=== PATIENT | female | born 1985 | race Caucasian/White ===

== ENCOUNTER 2017-10-05 05:16 | Inpatient (IN) ==
--- OUTSIDE RECORDS SUMMARY | 2017-10-05 05:23 | External Medical Summary | Continuity of Care Document ---
:1985 Author Organization [facility] [employer] [facility] Address [address] [place], [place] [address] Phone Care Team Providers Name Role Phone Blanquita Simmons MD Unavailable Unavailable Allergies, Adverse Reactions, Alerts Substance Reaction Severity Status amoxicillin hives Unknown Active Medications Medication Instructions Dosage Effective Dates Status Comments (start - stop) fluconazole 150 take 1 tablet by 150 MG - Active mg tablet oral route once Fioricet 50 take 1 - 2 capsule Not Available - Active mg-300 mg-40 mg by oral route capsule every 4 hours as needed not to exceed 6 capsules per 24hrs Plus take 1 tablet by Not Available - Active (calcium oral route every carbonate) 27 mg day iron-1 mg tablet Diprolene 0.05 % apply by topical Not Available - Active for psoriosis topical ointment route every day to the affected area(s) ; do not exceed 45 grams per week. Prozac 20 mg take 1 capsule by 20 MG - Active capsule oral route every day in the morning Problems Condition Effective Dates (start - stop) Clinical Status Supervision of other high risk - pregnancies, first trimester Encntr screen for infections w sexl - mode of transmiss Encounter for screening for oth - infec/parastc diseases Encounter For Other Specified - Screening Less than 8 weeks gestation of - Supervision of other high risk - pregnancies, first trimester Previous Low Transverse - 10 weeks gestation of - Oth related conditions, - second trimester 23 weeks gestation of - Supervision of other high risk - pregnancies, third trimester 28 weeks gestation of - Polycystic ovarian syndrome Morbid (severe) obesity due to excess calories Female infertility associated with anovulation 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) w abnormal findings Pap Smear Screening, Cervix Encounter for screening for diabetes - mellitus Encounter for screening for lipoid - disorders Body mass index (BMI) 40.0-44.9, adult Vaginal Discharge or Lesion - Previous Low Transverse - 28 weeks gestation of - Female infertility associated with - anovulation Encounter for screening for diabetes - mellitus Encounter for screening for lipoid - disorders Supervision of other high risk - pregnancies, second trimester Previous Low Transverse - Matern care for oth or susp poor fetl - grth, 2nd tri, unsp 19 weeks gestation of - Supervision of other high risk - pregnancies, second trimester Previous Low Transverse - 26 weeks gestation of - Supervision of other high risk - pregnancies, second trimester 25 weeks gestation of - Supervision of other high risk - pregnancies, second trimester Right upper quadrant pain - 19 weeks gestation of - Supervision of other high risk - pregnancies, third trimester 30 weeks gestation of - Oth related conditions, - third trimester Previous Low Transverse - 32 weeks gestation of - Matern care for oth or susp poor fetl - grth, 2nd tri, unsp 14 weeks gestation of - Depression Active Irregular Bleeding Active Procedures Procedure Date Unknown Results Test Name Date and Time Measure Units Reference Range Abnormal Flag Comments Unknown Advance Directives Directive Yes / No Effective Date File Name Unknown Encounters Encounter Practice Location Reason(s) Diagnoses Date Provider Care Team Description For Visit Members Malachi Fu Oth Aug- Jurado Referring In Womens related 2-201 Robyn. Provider: Health PA, conditions, third 8 700 Blanquita PO Box trimesterPrevious Medical [place] 1522, Low Transverse Center [facility], C-Calwrhv19 weeks [place] [address] [place], gestation of [address], [address], , [place], [place] [facility], , [place], tel: [phone] , [place]. tel: tel: [phone] Malachi Fu Aug-0 Jurado In Womens 3-201 Robyn. Health PA, 8 700 PO Box Medical 1522, [facility], [place], 120, , [place], [place], tel: [phone] , [place]. tel: [phone] Malachi Fu Supervision of Jul- Jurado Referring In Womens other high risk 8-201 Robyn. Provider: Health PA, pregnancies, 8 700 Blanquita PO Box third [id number] Medical [place] 1522, weeks gestation [facility], of [place] [address] [place], 120, [address], [id number], [place], , [place], tel: [phone]. , [place]. tel: tel: [phone] Malachi Fu Supervision of Jul- Jurado Referring In Womens other high risk 9-201 Robyn. Provider: Health PA, pregnancies, 8 700 Blanquita PO Box third [id number] Medical [place] 1522, weeks gestation [facility], [facility] [place] [address] [place], [address], [address], [id number], [place], , [place], tel: [phone]. , [place]. tel: tel: [phone] Malachi Fu Vaginal Discharge Anthony- Jurado Referring In Womens or LesionPrevious 4-201 Robyn. Provider: Health ANDRE, Low Transverse 8 700 Blanquita PO Box C-[id number] weeks [facility] 1522, gestation of [facility], [place] [address] [place], [address], [address], [id number], [facility] [place], , [place], tel: [phone]. , [place]. tel: tel: [phone] Malachi Fu Supervision of June-3 Jurado Referring In Womens other high risk 1-201 Robyn. Provider: Health PA, pregnancies, 8 700 Blanquita PO Box [facility] 1522, trimesterPrevious [facility], Low Transverse [place] [address]. [place], C-Gzefqca19 weeks 120, [address], , gestation of [facility] [place], , [place], tel: [phone]. , [place]. tel: tel: [phone] Malachi Fu Supervision of June- Jurado Referring In Womens other high risk 5-201 Robyn. Provider: Health PA, pregnancies, 8 700 Blanquita PO Box [facility] 1522, weeks [facility], gestation of [place] [address] [place], 120, [address], , [facility] [place], , [place], tel: [phone]. , [place]. tel: tel: [phone] Malachi Fu Oth June-1 Jurado Referring In Womens related 0-201 Robyn. Provider: Health PA, conditions, 8 700 Blanquita PO Box [facility] 1522, [id number] weeks [facility], gestation of [place] [address] [place], 120, [address], [id number], [facility] [place], , [place], tel: [phone]. , [place]. tel: tel: [phone] Malachi Fu Supervision of Apr-1 Jurado Referring In Womens other high risk 2-201 Robyn. Provider: Health PA, pregnancies, 8 700 Blanquita PO Box second Medical [facility] 1522, trimesterRight Center [facility], upper quadrant Dr, [place] [address] [place], pain19 weeks 120, [address], [id number], [facility] [place], , [place], tel: [phone] , [place]. tel: tel: [phone] Malachi Fu Supervision of Apr-1 Jurado Referring In Womens Ultrasound other high risk 2- Robyn. Provider: Health PA, pregnancies, 8 700 Blanquita PO Box second [facility] 1522, trimesterPrevious [facility], Low Transverse , [place] [address] [place], C-SectionMatern 120, [address], , care for oth or [place] [facility] susp poor fetl [place], , [place], tel: grth, 2nd tri, [phone]. [phone] unsp19 weeks , [place]. tel: gestation of tel: [phone] Malachi Fu Matern care for Mar-0 Jurado Referring In Womens oth or susp poor 8- Robyn. Provider: Salome POWELL, fetl grth, 2nd 8 700 Blanquita PO Box tri, unsp14 [facility], gestation of [facility], , [address] [address] [place], [address], , [place] [facility] [place], , [place], tel: [phone] , [place]. tel: tel: [phone] Malachi Fu Supervision of Feb-0 Jurado Referring In Womens other high risk 8-201 Robyn. Provider: Health ANDRE, pregnancies, 8 700 Blanquita PO Box first Medical [facility] 1522, trimesterPrevious [facility], Low Transverse , [place] [address] [place], C-Ykykomd35 weeks 120, [address], , gestation of [place], , [place], tel: [phone]. , [place]. tel: tel: [phone] Associates [place] Supervision of Jurado Referring In Womens other high risk - Robyn. Provider: Health PA, pregnancies, 8 700 Blanquita PO Box first Medical [facility] 1522, [facility]ntr [facility], screen for [place] [address] [place], infections w sexl 120, [address], , mode of [place], , [place], tel: r for screening [phone] . for ot , [place]. tel: infec/parastc tel: [phone] [facility]Encsonora [facility] medical cent[facility] [phone] For Other Specified ScreeningLess than 8 weeks gestation of Associates [place] Polycystic Yousuf-2 Jurado In Womens ovarian syndrome 8 Robyn. Health PA, 6 700 PO Box Medical 1522, [place] [address] [place], 120, , [facility] [place], tel: [phone] , [place]. tel: [phone] Associates [place] Female Anthony-2 Jurado In Womens infertility 7 Robyn. Health PA, associated with 6 700 PO [facility], ter for screening [place], for diabetes [place] Wilson, mellitusEncounter 120, , for screening for [facility] lipoid disorders [place], tel: [phone] , [place]. tel: [phone] Associates [place] Anthony-2 Jurado In Womens 2-201 Robyn. Health PA, 6 700 PO Box Medical 1522, [place] [address] [place], 120, , [facility] [place], tel:[phone] , [place]. tel: [phone] Associates [place] Morbid (severe) Anthony-2 Jurado In Womens obesity due to Robyn. Health PA, excess 6 700 PO Box caloriesFemale Medical 1522, infertility Center [place], associated with Bert[place], anovulationEncntr 120, [id number], for physiognomist exam [place] (general) [place], tel: (routine) w [phone] abnormal , [place]. findingsPap Smear tel: Screening, [phone] CervixEncounter for screening for diabetes mellitusEncounter for screening for lipoid disordersBody mass index (BMI) 40.0-44.9, adult Associates [place] May- Jurado In Womens Robyn. Health PA, 6 700 PO Box Medical 1522, [facility], , [place], 120, [id number], [place], [place], tel: [phone] , [place]. tel: [phone] Family History Family Member Diagnosis Age At Onset No family history of Breast Cancer No family history of Pulmonary Embolism No family history of Epilepsy No family history of Kidney Disease No family history of Venous Thrombosis Mother Hypertension Maternal Grandfather Liver Cancer No family history of Colon Cancer No family history of Ovarian Cancer Maternal Grandmother Thyroid Disorder No family history of Osteoporosis No family history of Stroke Maternal Grandmother Cardiovascular Disease Maternal Grandfather Diabetes Mother Thyroid Disorder Immunizations Vaccine Date Status Comments Tdap completed Source: New Immunization Record Influenza, injectable, completed Source: Other Provider quadrivalent, preservative free, 3 yrs or older Influenza, injectable, completed Source: Source Unspecified quadrivalent, preservative free, 3 yrs or older Influenza, injectable, completed Source: Other Provider quadrivalent, preservative free, 3 yrs or older Tdap completed Source: Other Provider Td (adult) preservative free completed Source: Other Provider Payers Payer name Insurance type Covered libertarian ID Authorization(s) BCBS Out Of [place] [id number] Aetna [id number] BCBS Out Of [place] BL [id number] Social History Type Description Quantity Date Captured Unknown Vital Signs Date / Height Weight BMI Pulse Blood Temperature Respiratory Body Head BMI Time: Rate Pressure Rate Surface Circumference percentile Area Unknown Chief Complaint And Reason For Visit Unknown Chief Complaint And Reason For Visit Reason For Referral Reason For Referral Unknown Plan Of Care Date Type Action Status Goal Lifestyle education regarding completed diet Goal Lifestyle education regarding completed diet Appointment Martina Gale BOOKED Appointment Martina Gale BOOKED Appointment Martina Gale BOOKED Appointment Martina Gale BOOKED Appointment Martina Gale [facility] R C/S, PPTL. BOOKED MB Assist Future Order: Lab Order Pap Smear With HPV Reflex If Ordered ASCUS ([id number]) Future Order: Radiology Order Complete OB Ultrasound > 14 Weeks Ordered ([id number]) Future Order: Radiology Order Gallbladder Sono ([id number]) Ordered Date Type Problem Goal Intervention Status Start Date Unknown. History Of Present Illness Encounter Date Complaint History Of Present Illness This patient has no known history of present illness Functional Status Encounter Date Functional Assessment Cognitive Assessment Unknown Medications Administered Medication Instructions Dosage Effective Dates (start - stop) Status Comments Drug Treatment Unknown Instructions Date Instruction Additional Information gestational glucose lab screening childbirth classes / hospital facilities hospital registration genetic testing new ob handbook HIV and other routine tests risk factors identified by history anticipated course of care nutrition and weight gain counseling, special diet toxoplasmosis precautions (cats / raw meat) sexual activity indications for ultrasound influenza vaccine environmental / work hazards travel domestic violence seat belt use exercise tobacco (ask, advise, assess, assist and arrange) alcohol illicit / recreational drugs use of any medications (including supplements, vitamins, herbs, OTC drugs) Giving encouragement to exercise Related to Body mass index 40.0-44.9 Lifestyle education regarding diet Related to Body mass index 40.0-44.9 Giving encouragement to exercise Related to Body mass index 40.0-44.9 Lifestyle education regarding diet Related to Body mass index 40.0-44.9
--- OUTSIDE RECORDS SUMMARY | 2017-10-05 05:23 | External Medical Summary | Continuity of Care Document ---
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 [...] third trimester 30 weeks gestation of - Previous Low Transverse - Maternal care for excess growth, - third trimester, unsp 34 weeks gestation of - Matern care for oth or susp poor fetl - grth, 2nd tri, unsp 14 weeks gestation of - Depression Active Irregular Bleeding Active Procedures Procedure Date OB Visit No Charge Results Test Name Date and Time Measure Units Reference Range Abnormal Flag Comments Unknown Advance Directives Directive Yes / No Effective Date File Name Unknown Encounters Encounter Practice Location Reason(s) Diagnoses Date Provider Care Team Description For Visit Members Malachi Fu Previous Low Aug- Jurado Referring In Womens Transverse 6-201 Robyn. Provider: Health ANDRE, C-SectionMaternal 8 700 Blanquita PO Box care for excess Medical [place] 1522, growth, [facility], third trimester, [place] [address] [place], unsp34 weeks 120, [address], , gestation of [place] [facility] [place], , [place], tel: [phone]. , [place]. tel: tel: [phone] Malachi Fu Ot Aug- Jurado Referring In Womens related 2-201 Robyn. Provider: Salome POWELL, conditions, third 8 700 Blanquita PO Box trimesterPrevious Medical [place] 1522, Low Transverse Center [facility], C-[id number] weeks [place] [address] [place], gestation of 120, [address], , [place] [facility] [place], , [place], tel: [phone] , [place]. tel: tel: [phone] Malachi Fu Aug-0 Jurado In Womens 3-201 Robyn. Health PA, 8 700 PO Box Medical 1522, [facility], Dr [place], 120, [id number], [facility] [place], tel: [phone] , [place]. tel: [phone] Malachi Fu Supervision of Jul- Jurado Referring In Womens other high risk 8-201 Robyn. Provider: Salome POWELL, pregnancies, 8 700 Blanquita PO Box third [id number] Medical [place] 1522, [facility], of [place] [address] [place], [address], [address], , [facility] [place], , [place], tel: [phone] . , [place]. tel: tel: [phone] Malachi Fu Supervision of Jul- Jurado Referring In Womens other high risk 9-201 Robyn. Provider: Health PA, pregnancies, 8 700 Blanquita PO Box third [id number] Medical [facility] 1522, weeks gestation [facility], of [place] [address] [place], 120, [address], [id number], [facility] [place], , [place], tel: [phone]. , [place]. tel: tel: [phone] Associates [place] Vaginal Discharge Anthony- Jurado Referring In Womens or LesionPrevious 4-201 Robyn. Provider: Salome POWELL, [facility] Transverse 8 700 Blanquita PO Box C-[id number] weeks [facility] 1522, gestation of [facility], [place] [address] [place], 120, [address], , [facility] [place], , [place], tel: [phone] . , [place]. tel: tel: [phone] Malachi Fu Supervision of June-3 Jurado Referring In Womens other high risk 1-201 Robyn. Provider: Health PA, pregnancies, 8 700 Blanquita PO Box [facility] 1522, trimesterPrevious [facility], Low Transverse [place] [address] [place], C-Zvawhtl16 weeks 120, [address], [id number], gestation of [facility] [place], , [place], tel: [phone] . , [place]. tel: tel: [phone] Malachi Fu Supervision of June- Jurado Referring In Womens other high risk 5-201 Robyn. Provider: Health ANDRE, pregnancies, 8 700 Blanquita PO Box [facility] 1522, [id number] weeks [facility], gestation of Dr, [place] [address] [place], 120, [address], [id number], [place], [place], , [place], tel: [phone]. , [place]. tel: tel: [phone] Associates [place] Oth May-1 Jurado Referring In Womens related 0-201 Robyn. Provider: Health PA, conditions, 8 [facility], [id number] weeks [facility], gestation of Dr [place] [address] [place], 120, [address], [id number], [place], [place], , [place], tel: [phone]. , [place]. tel: tel: [phone] Malachi Fu Supervision of Apr-1 Jurado Referring In Womens other high risk 2-201 Robyn. Provider: Health PA, pregnancies, 8 700 [facility], trimesterRight Center [facility], upper quadrant Dr [address] [place], pain19 weeks 120, [address], , gestation of [place], , [place], tel: [phone]. , [place]. tel: tel: [phone] Malachi Fu Supervision of Apr-1 Jurado Referring In Womens Ultrasound other high risk 2-201 Robyn. Provider: Health PA, pregnancies, 8 700 [facility], trimesterPrevious [facility], Low Transverse Dr [place] [address] [place], C-SectionMatern 120, [address], [id number], care for oth or [place], [place] susp poor fetl [place], , [place], tel: grth, 2nd tri, [phone]. unsp19 weeks , [place]. tel: gestation of tel: [phone] Malachi Fu Matern care for Mar-0 Jurado Referring In Womens oth or susp poor 8-201 Robyn. Provider: Health ANDRE, fetl grth, 2nd 8 700 Blanquita PO Box tri, unsp14 weeks Medical [facility] 1522, gestation of [facility], [place] [address] [place], 120, [address], [id number], [facility] [place], , [place], tel: [phone]. , [place]. tel: tel: [phone] Malachi Fu Supervision of Jurado Referring In Womens other high risk Robyn. Provider: Health ANDRE, pregnancies, 8 700 Blanquita PO [facility] 1522, trimesterPrevious [facility], Low Transverse Dr [place] [address] [place], C-Qfmkxcc66 weeks 120, [address], , gestation of [facility] [place], , [place], tel: [phone]. , [place]. tel: tel: [phone] Malachi Fu Supervision of Jurado Referring In Womens other high risk Robyn. Provider: Health ANDRE, pregnancies, 8 700 Blanquita [facility] 1522, trimesterEncntr [facility], screen for [place] [address] [place], infections w sexl 120, [address], , mode of [facility] [place]ounte [place], , [place], tel: r for screening [phone] . for ot , [place]. tel: infec/parastc tel: [phone] diseasesEncounter [phone] For Other Specified ScreeningLess than 8 weeks gestation of Associates [place] Polycystic Yousuf- Jurado In Womens ovarian syndrome ily. Health ANDRE, 6 700 [facility] 1522, [place], , [place], 120, [id number], [place], [place], tel: [phone] , [place]. tel: [phone] Malachi Fu Female Anthony-2 Jurado In Womens infertility 7- Robyn. Health PA, associated with 6 700 PO Box anovulationEncoun Medical 1522, ter for screening [facility], for diabetes [place], mellitusEncounter 120, , for screening for [place] lipoid disorders [place], tel:+ [phone] , [place]. tel: [phone] Associates [place] Anthony-2 Jurado In Womens 2-201 Robyn. Health PA, 6 700 PO Box Medical 1522, [place] [address], [place], 120, [id number], [facility] [place], tel:[phone] , [place]. tel: [phone] Associates [place] Morbid (severe) Anthony-2 Jurado In Womens obesity due to Robyn. 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 findingsPap Smear tel: Screening, [phone] CervixEncounter for screening for diabetes mellitusEncounter for screening for lipoid disordersBody mass index (BMI) 40.0-44.9, adult Associates [place] May-2 Jurado In Womens 6-201 Robyn. Health PA, 6 700 PO Box Medical 1522, [place] [address] [place], 120, , [facility] [place], tel:[phone] , [place]. tel: [phone] Family History Family Member Diagnosis Age At [...] Provider Payers Payer name Insurance type Covered green party ID Authorization(s) BCBS Out Of [place] [id number] Aetna CI [id number] BCBS Out Of [place] [id number] Social History Type Description Quantity Date Captured Alcohol Use Details No Caffeine Use Details Unknown Tobacco Use Status Unknown Smoking Status Never smoker Vital Signs Date / Height Weight BMI Pulse Blood Temperature Respiratory Body Head BMI Time: Rate Pressure Rate Surface Circumference percentile Area 243.20 44.4 134/84 -2018 lbs 8 mm[Hg] 8:46 kg/m AM eter (2) 44.2 -2018 8 8:41 kg/m AM eter (2) Chief Complaint And Reason For Visit Unknown Chief Complaint And Reason For Visit Reason For Referral Reason For Referral Unknown Plan Of Care Date Type Action Status Goal Lifestyle education regarding completed diet Goal Lifestyle education regarding completed diet Appointment Martina Gale BOOKED Appointment Martina Gale BOOKED Appointment Martina Gale BOOKED Appointment Martina Gale BOOKED Appointment Martina Gale [facility] R C/S, PPTL. BOOKED MB Assist Future Order: Lab Order Pap Smear With HPV Reflex If Ordered ASCUS (WPMPap1) Future Order: Radiology Order Complete OB Ultrasound > 14 Weeks Ordered ([id number]) Future Order: Radiology Order Gallbladder Sono ([id number]) Ordered Date Type Problem Goal Intervention Status [...]
--- OUTSIDE RECORDS SUMMARY | 2017-10-05 05:23 | External Medical Summary | Continuity of Care Document ---
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 Provider: Jen Ying-SectionEncounte 8 [address] PO Box r For Medical [place] 1522, [facility]ening [facility] Streptococcus B36 Bert[place] [address] [place], weeks gestation 120, [address], , of [facility] [place], , [place], tel:+ [phone] , [place]. tel: tel: [phone] Malachi Fu Previous Low Sep-0 Jurado Referring In Womens Ultrasound Transverse 9- Robyn. Provider: Salome POWELL C-SectionMaternal 8 700 [address] PO Box care for excess Medical [place] 1522, growth, Center Raad Montano, third trimester, Bert[place] [address] [place], unsp36 weeks 120, [address], [id number], gestation of [facility] [place], , [place], tel: [phone] , [place]. tel: tel: [phone] Associates Tank Previous Low Aug- Jurado Referring In Womens Transverse 6-201 Robyn. Provider: Saloem POWELL C-SectionMaternal 8 700 [address] PO Box care for excess Medical [place] 1522, growth, Center [facility], third trimester, Bertin [address] [place], unsp34 weeks 120, [address], , [facility] [place], , [place], tel: [phone]. , [place]. tel: tel: [phone] Malachi Fu Yousuf-2 Jurado Referring In Womens 3-201 Robyn. Provider: Health ANDRE, 8 700 [facility] 1522, [facility] [address], [address] [address] [place], 120, [address], [id number], Tank [facility] [place], , [place], tel: [phone]. , [place]. tel: tel: [phone] Malachi Fu h Yousuf-1 Jurado Referring In Womens related 2-201 Robyn. Provider: Health ANDRE, conditions, third 8 700 [address] PO Box trimesterPrevious [facility] 1522, Low Transverse Center [facility], C-[id number] weeks , [address] [place], gestation of 120, [address], , [facility] [place], , [place], tel: [phone]. , [place]. tel: tel: [phone] Malachi Fu Yousuf-0 Jurado In Womens 3-201 Robyn. Health PA, 8 700 [facility] 1522, [address] Ra[place], [place], 120, , [place], [place], tel: [phone] , [place]. tel: [phone] Malachi Fu Supervision of Anthony-2 Jurado Referring In Womens other high risk 8-201 Robyn. Provider: Health ANDRE, pregnancies, 8 700 [address] PO Box third [facility] 1522, weeks gestation [facility], of Dr Bertin [address] [place], 120, [address], [id number], [facility] [place], , [place], tel: [phone]. , [place]. tel: tel: [phone] Malachi Fu Supervision of Anthony- Jurado Referring In Womens other high risk 9-201 Robyn. Provider: Health PA, pregnancies, 8 700 [address] PO Box third [id number] Medical [facility] 1522, weeks gestation [facility], of Bertin [address] [place], 120, [address], [id number], [facility] [place], , [place], tel: [phone]. , [place]. tel: tel: [phone] Associates Tank Vaginal Discharge Anthony- Jurado Referring In Womens or LesionPrevious 4-201 Robyn. Provider: Salome POWELL, Low Transverse 8 700 [address] PO Box C-Ptocuup01 weeks [facility] 1522, gestation of [facility], Bertin Wilson E. [place], 120, [address], , [facility] [place], , [place], tel: [phone]. , [place]. tel: tel: [phone] Malachi Fu Supervision of June-3 Jurado Referring In Womens other high risk 1-201 Robyn. Provider: Health PA, pregnancies, 8 700 [address] PO Box [facility] 1522, trimesterPrevious [facility], Low Transverse Bertin Wilson E. JUVENCIO, C-Balxcci18 weeks 120, [address], , gestation of [place], , [place], tel: [phone] . , [place]. tel: tel: [phone] Malachi Fu Supervision of June-2 Jurado Referring In Womens other high risk 5-201 Robyn. Provider: Health PA, pregnancies, 8 700 [address] PO Box [facility] 1522, [id number] weeks [facility], gestation of Bertin [address] [place], 120, [address], [id number], [facility] [place], , [place], tel: [phone] , [place]. tel: tel: [phone] Associates Tank Oth May-1 Jurado Referring In Womens related 0-201 Robyn. Provider: Health PA, conditions, 8 700 [address] PO Box [facility] 1522, weeks [facility], gestation of Bertin [address] [place], 120, [address], , Tank, [place], , [place], tel: [phone] , [place]. tel: tel: [phone] Malachi Fu Supervision of Apr-1 Jurado Referring In Womens other high risk 2-201 Robyn. Provider: Health PA, pregnancies, 8 700 [address] PO Box [facility] 1522, trimesterRight [facility], upper quadrant Bertin [address] [place], pain19 weeks 120, [address], , [facility] of [facility] [place], , [place], tel: [phone] , [place]. tel: tel: [phone] Malachi Fu Supervision of Apr-1 Jurado Referring In Womens Ultrasound other high risk 2-201 Robyn. Provider: Health ANDRE, pregnancies, 8 700 [address] PO Box [facility] 1522, trimesterPrevious [facility], Low Transverse Dr Bertin [address] [place], C-SectionMatern 120, [address], , care for oth or [place], [place] susp poor fetl [place], , [place], tel: grth, 2nd tri, [phone]. unsp19 weeks , [place]. tel: gestation of tel: [phone] Associates Tank Matern care for Mar-0 Jurado Referring In Womens oth or susp poor 8-201 Robyn. Provider: Health ANDRE, fetl grth, 2nd 8 700 [address] PO Box tri, unsp14 weeks [facility] 1522, gestation of [facility], Dr, Bert[place] [address] [place], 120, [address], , [facility] [place], , [place], tel: [phone]. , [place]. tel: tel: [phone] Associates Tank Supervision of Jurado Referring In Womens other high risk [place]. Provider: Health PA, pregnancies, 8 700 [address] PO Box [facility] 1522, trimesterPrevious Center [facility], Low Transverse , [address] [place], C-Oqgprcv92 weeks 120, [address], , gestation of Tank [facility] [place], , [place], tel: [phone]. , [place]. tel: tel: [phone] Malachi Fu Supervision of Jurado Referring In Womens other high risk 2- [place]. Provider: Health PA, pregnancies, 8 700 [address] PO Box [facility] 1522, trimesterEncntr Center [facility], screen for Bertin [address] [place], infections w sexl 120, [address], , mode of [facility] transmissEncounte [place], , [place], tel: r for screening [phone] . for [facility] , [place]. tel: infec/parastc tel: [phone] diseasesEncounter [phone] For Other Specified ScreeningLess than 8 weeks gestation of Associates Tank Polycystic Aug- Jurado In Womens ovarian syndrome [place]. Health PA, 6 700 PO Box Medical 1522, [place] Raad, Bertin Wilson, 120, , [place], [place], tel: [phone] , [place]. tel: [phone] Malachi Fu Female Anthony- Jurado In Womens infertility - [place]. Health PA, associated with 6 700 PO Box anovulationEncoun [facility] 1522, ter for screening [facility], for diabetes Bertin Wilson, mellitusEncounter 120, , for screening for [facility] lipoid disorders [place], tel: [phone] , [place]. tel: [phone] Associates Tank Anthony-2 Jurado In Womens 2-201 Robyn. Health PA, 6 700 PO Box Medical 1522, [address] Raad, Bertin HENNING, 120, , [facility] [place], tel:[phone] , [place]. tel: [phone] Associates Tank Morbid (severe) Anthony-2 Jurado In Womens obesity due to - Robyn. Health PA, excess 6 700 PO Box caloriesFemale Medical 1522, infertility Center [address], associated with Bertin Wilson, anovulationEncntr 120, , for chemical dependency professional exam [facility] (general) [place], tel: (routine) w [phone] abnormal , [place]. findingsPap Smear tel: Screening, [phone] CervixEncounter for screening for diabetes mellitusEncounter for screening for lipoid disordersBody mass index (BMI) 40.0-44.9, adult Associates Tank Apr-2 Jurado In Womens 6-201 Robyn. Health PA, 6 700 PO Box Medical 15[address], [address] Raad, Bertin [place]ENNING, 120, , [facility] [place], tel:[phone] , [place]. tel: [phone] Family History Family Member Diagnosis Age At [...] Provider Payers Payer name Insurance type Covered democrat ID Authorization(s) BCBS Out Of [place] [id number] Aetna CI [id number] BCBS Out Of State BL [id number] Social History Type Description Quantity Date Captured Alcohol Use Details No Caffeine Use Details Unknown Tobacco Use Status Unknown Smoking Status Never smoker Vital Signs Date / Height Weight BMI Pulse Blood Temperature Respiratory Body Head BMI Time: Rate Pressure Rate Surface Circumference percentile Area 44.4 143/64 8 mm[Hg] 2:52 kg/m PM eter (2) Chief Complaint And Reason For Visit Unknown Chief Complaint And Reason For Visit Reason For Referral Reason For Referral Unknown Plan Of Care Date Type Action Status Goal Lifestyle education regarding completed diet Goal Lifestyle education regarding completed diet Appointment Martina Gale BOOKED Appointment Martina Gale BOOKED Appointment Martina Gale [facility] R C/S, PPTL. BOOKED MB Assist Future Order: Lab Order Pap Smear With HPV Reflex If Ordered ASCUS (WPMPap1) Future Order: Radiology Order Complete OB Ultrasound > 14 Weeks Ordered ([id number]) Future Order: Radiology Order Gallbladder Sono ([id number]) Ordered Future Order: Radiology Order Ultrasound OB Follow-up ([id number]) Ordered Date Type Problem Goal Intervention Status Start Date Unknown. History Of Present Illness Encounter Date Complaint History Of Present Illness This patient has no known history of present illness Functional Status Encounter Date Functional Assessment Cognitive Assessment Unknown Medications Administered Medication Instructions Dosage Effective Dates (start - stop) Status Comments Drug Treatment Unknown Instructions Date Instruction Additional Information labor signs group B strep screening gestational glucose lab screening childbirth classes / [...]
--- OUTSIDE RECORDS SUMMARY | 2017-10-05 05:23 | External Medical Summary | Continuity of Care Document ---
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 Provider: Jen Ying-SectionEncounte 8 [address] PO Box r For Medical [place] 1522, Screening For Center [facility] [place], Streptococcus B36 Bertin [address] [place], weeks gestation 120, [address], , of [facility] [place], , [place], tel:+ [phone]. [phone] , [place]. tel: tel: [phone] Associates Tank Previous Low Sep-0 Jurado Referring In Womens Ultrasound Transverse 9-201 Robyn. Provider: Salome POWELL C-SectionMaternal 8 700 [address] PO Box care for excess Medical [place] 1522, growth, Center Raad Montano, third trimester, Bertin Wilson [address] [place], unsp36 weeks 120, [address], [id number], gestation of [facility] [place], , [place], tel:[phone]. [phone] , [place]. tel: tel: [phone] Associates Tank Previous Low Aug- Jurado Referring In Womens Transverse 6-201 Robyn. Provider: Salome POWELL C-SectionMaternal 8 700 [address] PO Box care for excess Medical [place] 1522, growth, [place] Raad Montano, third trimester, Bertin [address] [place], unsp34 weeks 120, [address], [id number], gestation of Tank [facility] [place], , [place], tel: [phone]. , [place]. tel: tel: [phone] Associates Tank [facility] Yousuf-1 Jurado Referring In Womens related 2-201 Robyn. Provider: Health ANDRE, conditions, third 8 700 [address] PO Box trimesterPrevious [facility] 1522, Low Transverse Center [facility], C-[id number] weeks Bert[place] [address] [place], gestation of 120, [address], , [place] [facility] [place] [facility] [place], , [place], tel: [phone]. , [place]. tel: tel: [phone] Associates Tank Yousuf-0 Jurado In Womens 3-201 Robyn. Health PA, 8 700 [address] [place] [id number], [facility], Bertin Wilson [place], 120, , [place], [place], tel: [phone] , [place]. tel: [phone] Malachi Fu Supervision of Anthony-2 Jurado Referring In Womens other high risk 8-201 Robyn. Provider: Health ANDRE, pregnancies, 8 700 [address] PO Box third [id number] Medical [facility] 1522, weeks gestation [facility], of Bertin Wilson E. [place], 120, [address], , Tank [facility] [place] [facility] [place], , [place], tel: [phone]. , [place]. tel: tel: [phone] Malachi Fu Supervision of Anthony-1 Jurado Referring In Womens other high risk 9-201 Robyn. Provider: Health ANDRE, pregnancies, 8 700 [address] PO Box third [id number] Medical [place] 1522, weeks gestation [facility], of Bertin Wilson [address] [place], 120, [address], [id number], Tank [facility] [place] [facility] [place], , [place], tel: [phone] , [place]. tel: tel: [phone] Associates Tank Vaginal Discharge Anthony-1 Jurado Referring In Womens or LesionPrevious 4-201 Robyn. Provider: Salome POWELL, Low Transverse 8 700 [address] PO Box C-Ivqxyjn42 weeks [facility] 1522, gestation of [facility], Bertin Wilson E. [place], 120, [address], , [facility] [place], , [place], tel: [phone]. [phone] , [place]. tel: tel: [phone] Malachi Fu Supervision of June-3 Jurado Referring In Womens other high risk 1-201 Robyn. Provider: Salome POWELL, pregnancies, 8 700 [address] PO Box [facility] 1522, trimesterPrevious [facility], Low Transverse Bertin Wilson EMagda HENNING, C-Zqpmops28 weeks 120, [address], , gestation of [place], , [place], tel: [phone] , [place]. tel: tel: [phone] Malachi Fu Supervision of June-2 Jurado Referring In Womens other high risk 5-201 Robyn. Provider: Salome POWELL, pregnancies, 8 700 [address] PO Box [facility] 1522, [id number] weeks [facility], gestation of Bertin Wilson E. [place], 120, [address], , [place], , [place], tel: [phone]. [phone] , [place]. tel: tel: [phone] Associates Tank Oth May-1 Jurado Referring In Womens related 0-201 Robyn. Provider: Salome POWELL, conditions, 8 700 [address] PO Box [facility] 1522, [id number] weeks [facility], gestation of Bertin Wilson E. [place], 120, [address], , [place], , [place], tel: [phone]. , [place]. tel: tel: [phone] Malachi Fu Supervision of Apr-1 Jurado Referring In Womens other high risk 2-201 Robyn. Provider: Health PA, pregnancies, 8 700 [address] PO Box second [facility] 1522, trimesterRight Center [facility], upper quadrant , [address] [place], pain19 weeks 120, [address], , gestation of [facility] [place], , [place], tel: [phone]. , [place]. tel: tel: [phone] Malachi Fu Supervision of Apr-1 Jurado Referring In Womens Ultrasound other high risk 2-201 Robyn. Provider: Salome POWELL, pregnancies, 8 700 [address] PO Box [facility] 1522, trimesterPrevious [facility], Low Transverse , Bert[address] [place], C-SectionMatern 120, [address], , care for oth or Tank [facility] susp poor fetl [place], , [place], tel: grth, 2nd tri, [phone]. unsp19 weeks , [place]. tel: gestation of tel: [phone] Associates Tank Matern care for Mar-0 Jurado Referring In Womens oth or susp poor 8-201 Robyn. Provider: Health ANDRE, fetl grth, 2nd 8 700 [address] PO Box tri, unsp14 weeks Medical [facility] 1522, gestation of [facility], Dr Bertin [address] [place], 120, [address], , [facility] [place], , [place], tel: [phone]. , [place]. tel: tel: [phone] Malachi Fu Supervision of Feb-0 Jurado Referring In Womens other high risk 8-201 Robyn. Provider: Health ANDRE, pregnancies, 8 700 [address] PO Box first [facility] 1522, trimesterPrevious Center [facility], Low Transverse Bertin [address] [place], C-[id number] weeks 120, [address], , gestation of Tank [facility] [place], , [place], tel: [phone]. , [place]. tel: tel: [phone] Associates Tank Supervision of Jurado Referring In Womens other high risk 2- Robyn. Provider: Health PA, pregnancies, 8 700 [address] [facility] 1522, trimesterEncntr Center [facility], screen for Bertin [address] [place], infections w sexl 120, [address], , mode of [facility] transmissEncounte [place], , [place], tel: r for screening [phone]. for oth , [place]. tel: infec/parastc tel: [phone] diseasesEncounter [phone] For Other Specified ScreeningLess than 8 weeks gestation of Associates Tank Polycystic Yousuf-2 Jurado In Womens ovarian syndrome 8- [place]. Health ANDRE, 6 700 [place] [address]64[address], [place] [address] [place], 120, , [facility] [place], tel: [phone] , [place]. tel: [phone] Associates Tank Female Anthony-2 Jurado In Womens infertility 7- [place]. Health ANDRE, associated with 6 700 PO [place] [facility] 1522, ter for screening [facility], for diabetes Bertin Wilson, mellitusEncounter 120, , for screening for [facility] lipoid disorders [place], tel:[phone] , [place]. tel: [phone] Associates Tank Anthony-2 Jurado In Womens 2-201 Robyn. Salome POWELL, 6 700 [facility] 1522, [place] [address] [place], 120, , [place], [place], tel:[phone] , [place]. tel: [phone] Associates Tank Morbid (severe) Anthony-2 Jurado In Womens obesity due to - Robyn. Health PA, excess 6 700 PO Box caloriesFemale Medical 1522, infertility Center [place], associated with Bertin Wilson, anovulationEncntr 120, [id number], for weld technician exam [place], (general) [place], tel: (routine) w [phone] abnormal , [place]. findingsPap Smear tel: Screening, [phone] CervixEncounter for screening for diabetes mellitusEncounter for screening for lipoid disordersBody mass index (BMI) 40.0-44.9, adult Associates Tank May-2 Jurado In Womens 6-201 Robyn. Health PA, 6 700 PO Box Medical 1522, [facility], Bertin Wilson, 120, [id number], [place], [place], tel: [phone] , [place]. tel: [phone] Family History Family Member Diagnosis Age At [...] Provider Payers Payer name Insurance type Covered constitution party ID Authorization(s) BCBS Out Of State [id number] Aetna CI [id number] BCBS Out Of State BL [id number] Social History Type Description Quantity Date Captured Alcohol Use Details No Caffeine Use Details Unknown Tobacco Use Status Unknown Smoking Status Never smoker Vital Signs Date / Height Weight BMI Pulse Blood Temperature Respiratory Body Head BMI Time: Rate Pressure Rate Surface Circumference percentile Area 246.40 45.0 /2018 lbs 6 mm[Hg] 8:50 kg/m AM eter (2) Chief Complaint And Reason For Visit Unknown Chief Complaint And Reason For Visit Reason For Referral Reason For Referral Unknown Plan Of Care Date Type Action Status Goal Lifestyle education regarding completed diet Goal Lifestyle education regarding completed diet Appointment Martina Gale BOOKED Appointment Martina Gale BOOKED Appointment Martina Gale [facility] R C/S, PPTL. BOOKED MB Assist Future Order: Lab Order Pap Smear With HPV Reflex If Ordered ASCUS (WPMPap1) Future Order: Radiology Order Complete OB Ultrasound > 14 Weeks Ordered ([id number]) Future Order: Radiology Order Gallbladder Sono ([id number]) Ordered Future Order: Radiology Order Ultrasound OB Follow-up ([id number]) Ordered Date Type Problem Goal Intervention Status [...]
[2017-10-05 05:31] VITALS: BMI 45.6
[2017-10-05] MEDS ORDERED: FAMOTIDINE PB 20 MG/50 ML BAG IV ONE (05:31)
[2017-10-05] MEDS ORDERED: CEFAZOLIN PREMIX (MC ONLY) 2 GM/50 ML BAG IV ONE (05:31)
[2017-10-05] MEDS ORDERED: CITRIC ACID/SODIUM CITRATE 30ml PO ONE (05:31)
[2017-10-05] MEDS ORDERED: NOZIN NASAL SWAB NAS ONE (05:31)
[2017-10-05] MEDS: LR 1,000 ML IV SCH ×2 (05:59→20:09)
[2017-10-05] MEDS ORDERED: OXYTOCIN BOLUS BAG 30 UNIT/500 ML ML IV SCH (06:45)
[2017-10-05] MEDS ORDERED: FentaNYL 100 MCG/2 ML INJECTION ONE (07:10)
[2017-10-05] MEDS ORDERED: MORPHINE SULFATE PF 5mg/10ml INJ (Duramorph) ONE (07:10)
[2017-10-05] MEDS ORDERED: BUPIVACAINE 0.75%/DEXTROSE 8.5% SPINAL 2 ML AMPULE IJ ONE (07:19)
[2017-10-05] MEDS ORDERED: LIDOCAINE 2% (100mg/5mL) 5ml PF SDV ONE (07:19)
[2017-10-05] MEDS ORDERED: ONDANSETRON 4 MG/2 ML INJECTION ONE (07:36)
[2017-10-05] MEDS ORDERED: SALINE FLUSH 10ml SYRINGE ONE (07:37)
[2017-10-05] MEDS ORDERED: EPHEDRINE 50mg/ml INJECTION ONE (07:37)
[2017-10-05] MEDS ORDERED: SIMETHICONE 80 MG CHEWABLE TABLET PO PRN (08:48)
[2017-10-05] MEDS ORDERED: HYDROCORTISONE 2.5% CREAM 30gm RECTALLY PRN (08:48)
[2017-10-05] MEDS ORDERED: CALCIUM CARBONATE Chewable 500mg TABLET PO PRN (08:48)
[2017-10-05] MEDS ORDERED: MEASLES-MUMPS-RUBELLA VACCINE 0.5ml INJECTION SQ ONE (08:48)
[2017-10-05] MEDS ORDERED: DiphenhydrAMINE 25 MG CAPSULE PO PRN (08:48)
[2017-10-05] MEDS ORDERED: ACETAMINOPHEN 500 MG TABLET PO PRN (08:48)
[2017-10-05] MEDS: D5LR 1,000 ML IV SCH ×2 (08:55→15:39)
[2017-10-05] MEDS ORDERED: OXYTOCIN DRIP 30 UNIT/500 ML ML IV SCH (09:00)
[2017-10-05] MEDS ORDERED: METOCLOPRAMIDE 10mg/2ml INJECTION IVP ONE (09:45)
--- NOTE | 2017-10-05 09:51 | Operative Note ---
Operative Note - Date of Operation Date of Operation: 10/05/17 - General : 3 Para: 1 Estimated or Known Gestational Age (weeks): 39 - Preoperative Diagnosis Previous Section, Desires sterilization - Postoperative Diagnosis same as preoperative - Procedure Repeat, Low-transverse , Tubal Ligation - Surgeon Surgeon: Robyn Jurado MD - Pluck Trimmer OB Pluck Trimmer: Quang Mendoza SurgMagda Assist - Anesthesia Anesthesia Provider: Jerel Goldstein CRNA Anesthesia Type: Spinal - Complications Complications: None - Estimated Blood Loss Estimated Blood Loss:: 1000 - Findings Findings: viable male, clear fluids, normal uterus, normal adenexa, OT - APGARS : 5,7,9 - Canaan Weight Canaan Weight (grams): 3236 - [place]aan Name Canaan Name: Gunner - Description of Procedure Description of Procedure: The patient was taken to the operating room where anesthesia was obtained . She was placed in the dorsal supine position with a leftward tilt. A Denise catheter was placed . She was prepared and draped in the normal sterile fashion. A Pfannenstiel incision was created 2 cm above the symphysis pubis and carried down to the fascia. The fascia was incised in the midline with the scalpel and then extended laterally with the Goncalves scissors. The fascia was elevated, and the underlying rectus muscles were dissected off. The peritoneum was entered bluntly. This was extended superiorly and inferiorly with good visualization of the bladder. The bladder blade was inserted. The bladder was low enough on the uterus that a bladder flap was not created. The lower uterine segment was incised in a transverse fashion [id number] with the scalpel and bluntly extended. The membranes were ruptured. The s head was delivered atraumatically. The nose and mouth were suctioned. The cord was clamped and cut. The infant was handed to the waiting resuscitation team. The placenta delivered spontaneously. The uterus was exteriorized and cleared of all clots and debris. The uterus was closed with running, locked 0- monocryl. Two figure of eights were placed for hemostasis. Hemostasis was obtained on the serosal edges with cautery. A Fallopian tube was identified and carried out to the fimbriae. An avascular segment was grasped with a [place]. The segment was ligated with chromic. Each end of the segment was ligated with chromic. The tube segment was excised, and good hemostasis was noted. The procedure was repeated on the other tube. The uterus was returned to the abdomen. The gutters were cleared of all clots and debris. The uterine incision was inspected one final time and still noted to be hemostatic. The peritoneum was closed with running 2-0 vicryl. Hemostasis was obtained in the rectus muscles with the cautery. The fascia was closed with running 0-vicryl. Hemostasis was obtained in the subcutaneous tissue with the cautery. The deep tissue was closed with running 2-0 chromic. The skin was closed with 4-0 vicryl in a subcuticular manner. The Provena wound vac was placed. Sponge, sharp, and instrument counts were correct. The patient tolerated the procedure well and was taken to the recovery room in good condition.
[2017-10-05] MEDS ORDERED: ONDANSETRON 4 MG/2 ML INJECTION IVP PRN (10:07)
[2017-10-05] MEDS ORDERED: NALOXONE 2 MG/2 ML INJECTION PFS IVP PRN (10:07)
[2017-10-05] MEDS ORDERED: NALBUPHINE 10 MG/ML INJECTION IVP PRN (10:07)
--- NOTE | 2017-10-05 10:08 | Anesthesia Preoperative Report ---
Anesthesia Epidural/Spinal Rec - Date and Time Date: 10/05/17 Procedure: Plan: Spinal - Vital Signs Vital Signs: Temperature 98.2 F 10/05/17 06:06 Pulse Rate 83 10/05/17 06:06 Respiratory Rate 18 10/05/17 06:06 Blood Pressure 132/84 10/05/17 06:06 Pulse Oximetry 97 10/05/17 06:06 NPO since: 00 /Para: P:1 Heart Rate: 159 - Medictaions & Allergies Inpatient Medications: Current Medications Acetaminophen (Tylenol) 500 - 1,000 mg PO Q4H PRN PRN Reason: Pain Hydrocodone Bitart/Acetaminophen ([place] 5/325) 1 - 2 tab PO Q4H PRN PRN Reason: Pain Calcium Carbonate (Tums) 500 mg PO O PRN Diphenhydramine HCl (Benadryl) 25 - 50 mg PO Q6H PRN PRN Reason: Itching Docusate Calcium (Surfak) 240 mg PO DAILY [facility] Hydrocortisone (Anusol-Hc 2.5% Cream) 1 applic RECTALLY PRN PRN PRN Reason: Hemorrhoids Lactated Ringer's (Lactated Ringers) 1,000 mls @ 150 mls/hr IV .Q6H40M [facility] Last Admin: 10/05/17 05:59 Dose: 150 mls/hr Oxytocin (Pitocin Drip) 30 unit in 500 mls @ 50 mls/hr IV .Q10H [facility] Stop: 10/05/17 18:59 Last Admin: 10/05/17 08:56 Dose: 50 mls/hr Dextrose/Lactated Ringer's (Dextrose 5%-Lactated Ringers) 1,000 mls @ 100 mls/ hr IV .Q10H [facility] Last Admin: 10/05/17 08:55 Dose: 100 mls/hr Ibuprofen (Motrin) 800 mg PO Q8H PRN PRN Reason: Pain Magnesium Hydroxide (Mom) 30 ml PO HS PRN PRN Reason: Constipation Simethicone (Mylicon) 80 mg PO [facility] BISI Simethicone (Mylicon) 80 mg PO [facility] PRN PRN Reason: Gas Allergies/Adverse Reactions: Allergies Allergy/AdvReac Type Severity Reaction Status Date / Time amoxicillin Allergy Intermediate Hives Verified 09/28/17 10:52 latex AdvReac Intermediate Redness of Verified 09/28/17 10:53 Skin - Home Medications Home Medications: Home Medications Medication Instructions Recorded Confirmed Type Prozac (fluoxetine) 20 mg capsule 20 mg PO DAILY 05/27/17 09/28/17 History 1 tab PO DAILY 05/27/17 10/05/17 History vitamin,calcium,dhqtvtni-bkyt-nxyxl acid tablet - Medical History Respiratory: DENIES: Sleep Apnea Gastrointestional: Reports: Gastroesophageal Reflux Disease, Morbid Obesity Neuro/Musculoskeletal: Reports: Depression, Headaches Other History: Reports: Now - Surgical History HEENT Surgeries: Reports: Tonsillectomy Reproductive Surgery/Treatment: Reports: Section Anesthesia Reactions: None Hx Family Anesthesia Reaction: No History of Motion Sickness: No - Social History Smoking Status: Never smoker Second Hand Exposure: No Substance Use Type: does not use Alcohol Intake Frequency: does not drink Hx Chewing Tobacco Use: No - Pertinent Findings Lab Data: CBC and BMP 10/05/17 05:56 - Physical Exam Respiratory Exam: lungs clear, bilateral breath sounds equal Cardiovascular Exam: regular rate and rhythm - Airway Assessment Mallampati Score: II TMD: 3 Fingerbreadths Neck Extension: good Overall Assessment: no airway concerns - ASA ASA Score: 2 - Discussion Discussion: Discussed risks/options/alternatives of anesthesia and questions answered. Patient consents. Nursing pain assessment noted. Anesthesia Discussion: spouse Attestation Statement: Prior to the delivery of any anesthetic medication, I examined the patient, developed the plan, obtained the patient's consent and discussed the risk and benefits of the procedure with the patient/guardian.
[2017-10-05] MEDS: HYDROCODONE/APAP 5mg/325mg TABLET PO PRN (10:29)
[2017-10-05] MEDS: IBUPROFEN 800 MG TABLET PO PRN ×2 (10:30→20:40)
[2017-10-05] MEDS: SIMETHICONE 80 MG CHEWABLE TABLET PO SCH ×2 (15:18→20:37)
[2017-10-05] MEDS ORDERED: LR 500 ML IV SCH (17:45)
[2017-10-05] MEDS ORDERED: LR 1,000 ML IV SCH (17:45)
--- NOTE | 2017-10-05 18:02 | OB/GYN Progress Note ---
OB-PP Progress Note - General POD:: Post Op Check - Subjective Date: 10/05/17 Lochia: Minimal Pain: controlled Voiding: voiding - Objective Vital Signs: Last Vital Signs Temp 98.2 F 10/05/17 06:06 Pulse 83 10/05/17 06:06 Resp 18 10/05/17 06:06 BP 132/84 10/05/17 06:06 Pulse Ox 97 10/05/17 06:06 Urine Output: adequate (borderline) General: alert and oriented Abdomen: fundus firm, non-tender, soft, non-distended Laboratory: Laboratory Results - last 24 hr 10/05/17 10/05/17 10/05/17 05:56 05:56 14:11 WBC 5.4 10.4 D RBC 4.65 4.22 Hgb 12.5 11.2 L Hct 37.5 34.9 L MCV 80.6 82.7 MCH 26.9 26.5 MCHC 33.3 32.1 RDW Std Deviation 43.4 44.2 Plt Count 168 146 MPV 12.0 11.7 Immature Gran % (Auto) 0.2 Neut % (Auto) 77.6 H Lymph % (Auto) 18.8 L [place] % (Auto) 3.2 Eos % (Auto) 0.0 Baso % (Auto) 0.2 Neut # (Auto) 4.2 Lymph # (Auto) 1.0 [place] # (Auto) 0.2 Eos # (Auto) 0.0 Baso # (Auto) 0.0 Abs Immat Gran (auto) 0.01 Blood Type AB Positive Antibody Screen Negative - Assessment Assessment: Repeat C/S, Tubal Ligation - Plan Plan: routine care Starting a fluid bolus.
[2017-10-05] MEDS: DOCUSATE CALCIUM 240 MG CAPSULE PO SCH (20:05)
[2017-10-06] MEDS: D5LR 1,000 ML IV SCH (00:59)
[2017-10-06] MEDS: SIMETHICONE 80 MG CHEWABLE TABLET PO SCH ×5 (02:47→23:48)
[2017-10-06] MEDS: IBUPROFEN 800 MG TABLET PO PRN ×3 (05:40→23:47)
[2017-10-06] MEDS: HYDROCODONE/APAP 5mg/325mg TABLET PO PRN ×3 (06:46→18:44)
--- NOTE | 2017-10-06 07:58 | Anesthesia Postoperative Note ---
- Date and Time Date: 10/06/17 Time: 07:50 - Status Patient Participated in Evaluation: Patient Participated in Person Vital Signs: Temperature 98.1 F 10/06/17 06:00 Pulse Rate 75 10/06/17 06:00 Respiratory Rate 16 10/06/17 06:00 Blood Pressure 122/72 10/06/17 06:00 Pulse Oximetry 99 10/06/17 06:00 Respiratory Function: Airway Patent, Regular Respirations Cardiovascular Function: Regular Pulse Mental Status: Alert and Oriented Pain Intensity: 0 Hydration: Taking PO Fluids Nausea/Vomiting: None Complications During Recover: None Apparent Post Anesthesia Care Notes: ambulatory without problems. - Follow-Up Instructions Instructions: Per Surgeon
--- NOTE | 2017-10-06 08:04 | OB/GYN Progress Note ---
OB-PP Progress Note - General PPD1 Maternal Group B Strep: Negative Maternal Rh: positive Maternal Rubella Status: Equivical - Subjective Date: 10/06/17 Lochia: Minimal Pain: controlled Voiding: voiding - Objective Vital Signs: Last Vital Signs Temp 98.1 F 10/06/17 06:00 Pulse 75 10/06/17 06:00 Resp 16 10/06/17 06:00 BP 122/72 10/06/17 06:00 Pulse Ox 99 10/06/17 06:00 General: alert and oriented Abdomen: fundus firm, non-tender, soft, non-distended Incision: dressed (wound vac in place) Extremities: non-tender Laboratory: Laboratory Results - last 24 hr 10/05/17 10/05/17 05:56 14:11 WBC 10.4 D RBC 4.22 Hgb 11.2 L Hct 34.9 L MCV 82.7 MCH 26.5 MCHC 32.1 RDW Std Deviation 44.2 Plt Count 146 MPV 11.7 Blood Type AB Positive Antibody Screen Negative - Assessment Assessment: Repeat C/S, Tubal Ligation - Plan Plan: routine care
[2017-10-06] MEDS: DOCUSATE CALCIUM 240 MG CAPSULE PO SCH (14:18)
[2017-10-07] MEDS: HYDROCODONE/APAP 5mg/325mg TABLET PO PRN ×2 (05:36→14:18)
[2017-10-07 05:45] VITALS: O2SAT 100
[2017-10-07] MEDS: SIMETHICONE 80 MG CHEWABLE TABLET PO SCH ×3 (06:36→14:19)
--- NOTE | 2017-10-07 07:52 | OB/GYN Progress Note ---
OB-PP Progress Note - General PPD2 Maternal Group B Strep: Negative Maternal Rh: positive Maternal Rubella Status: Equivical - Subjective Date: 10/07/17 Lochia: Minimal Pain: controlled Voiding: voiding - Objective Vital Signs: Last Vital Signs Temp 97.1 F 10/07/17 05:44 Pulse 80 10/07/17 05:44 Resp 16 10/07/17 05:44 BP 140/78 H 10/07/17 05:44 Pulse Ox 100 10/07/17 05:44 General: alert and oriented Abdomen: fundus firm, non-tender Incision: dressed (wound vac) Extremities: non-tender - Assessment Assessment: Repeat C/S, Tubal Ligation - Plan Plan: routine care, discharge home, continue PNV
[2017-10-07] MEDS: IBUPROFEN 800 MG TABLET PO PRN (09:20)
[2017-10-07 09:36] VITALS: BP 126/76; PULSE 87; TEMP 97.2
[2017-10-07] MEDS: DOCUSATE CALCIUM 240 MG CAPSULE PO SCH (11:01)
[2017-10-07 14:19] VITALS: RESP 20
== END 2017-10-07 14:50 | disposition home or self-care (01) | DRG 765 ==
LOC: MC 05:16
PROVIDERS: ADMIT Obstetrics & Gynecology; ATTEND Obstetrics & Gynecology